=== PATIENT | female | born 1950 | race Caucasian/White ===

== ENCOUNTER → 2025-02-17 | Outpatient (CLI) | payer OTHER | END | disposition home or self-care (01) | LOC: RESCLI 09:19 | PROVIDERS: ATTEND Family Medicine | DX: E11.9 Type 2 diabetes mellitus without complications (principal); E78.5 Hyperlipidemia, unspecified; I11.0 Hypertensive heart disease with heart failure; I50.9 Heart failure, unspecified; N95.2 Postmenopausal atrophic vaginitis; Z79.899 Other long term (current) drug therapy; Z98.890 Other specified postprocedural states; Z88.5 Allergy status to narcotic agent; Z88.8 Allergy status to other drugs, medicaments and biological substances ==